=== PATIENT | female | born 2000 | race Caucasian/White ===

== ENCOUNTER 2019-09-21 14:49 | Observation (INO) ==
[2019-09-21 15:30] LABS: Basophils % 0.3 %; Eosinophils # 0.1 K/mcL (0.0-0.6); Eosinophils % 1.1 %; Hematocrit 38.1 % (35.3-44.9); Hemoglobin 13.2 g/dL (11.5-15.4); Immature Granulocytes % 1.1 % (0-4); Lymphocytes # 2.1 K/mcL (0.6-4.6); Lymphocytes % 16.2 %; Mean Corpuscular HGB Conc 34.6 g/dL (31.6-35.5); Mean Corpuscular Hemoglobin 30.7 pg (28.0-33.3); Mean Corpuscular Volume 88.6 fL (83.0-100.0); Mean Platelet Volume 9.9 fL (9.4-12.4); Monocytes # 0.8 K/mcL (0.0-1.3); Monocytes % 6.2 %; Neutrophils # 9.9 K/mcL (1.6-8.9); Platelet Count 381 K/mcL (140-400); Red Cell Distribution Width 13.8 % (11.5-14.5); Segmented Neutrophils % 75.1 %; White Blood Count 13.1 K/mcL (4.3-11.1)
[2019-09-21 15:41] LABS: Alanine Aminotransferase 15 Units/L (7-52); Aspartate Amino Transferase 13 Units/L (13-39); BUN/Creatinine Ratio 18 (6-26); Blood Urea Nitrogen 11 mg/dL (6-20); Lactate Dehydrogenase 207 Units/L (140-271); Uric Acid 4.3 mg/dL (2.3-7.6); eGFR For African Americans > 60 (> 60); eGFR For Non-African Americans > 60 (> 60)
[2019-09-21 15:56] LABS: Protein/Creatinine Ratio,Urine 2.6 mg/mg (0.00-0.20)
== END 2019-09-21 17:30 | disposition home or self-care (01) ==
LOC: 1NENULAB
PROVIDERS: ADMIT Advanced Practice Midwife; ATTEND Advanced Practice Midwife

== ENCOUNTER → 2019-09-22 16:35 | Observation (INO) ==
[~2019-09-22 16:35] MED LIST: Ringers Solution, Lactated 1,000 ML IVC ONE
[2019-09-22 16:45] LABS: Total Volume 24 Hour,Urine 1.9 Liters (0.60-1.60)
[2019-09-22 17:00] LABS: Protein/Creatinine Ratio,Urine 2.35 mg/mg (0.00-0.20)
== END | disposition home or self-care (01) ==
LOC: 1NENULAB
PROVIDERS: ADMIT Advanced Practice Midwife; ATTEND Advanced Practice Midwife

== ENCOUNTER → 2019-09-28 16:00 | Observation (INO) ==
[2019-09-28 12:19] LABS: Basophils % 0.3 %; Eosinophils # 0.1 K/mcL (0.0-0.6); Hematocrit 37.3 % (35.3-44.9); Hemoglobin 12.9 g/dL (11.5-15.4); Lymphocytes # 1.7 K/mcL (0.6-4.6); Mean Corpuscular HGB Conc 34.6 g/dL (31.6-35.5); Mean Corpuscular Hemoglobin 30.8 pg (28.0-33.3); Mean Platelet Volume 9.9 fL (9.4-12.4); Monocytes # 0.6 K/mcL (0.0-1.3); Monocytes % 4.9 %; Neutrophils # 9.3 K/mcL (1.6-8.9); Platelet Count 344 K/mcL (140-400); Red Blood Count 4.19 M/mcL (3.82-4.97); Red Cell Distribution Width 13.7 % (11.5-14.5); Segmented Neutrophils % 78.8 %; White Blood Count 11.8 K/mcL (4.3-11.1)
[2019-09-28 12:29] LABS: Protein/Creatinine Ratio,Urine 2.86 mg/mg (0.00-0.20)
[2019-09-28 12:44] LABS: Alanine Aminotransferase 15 Units/L (7-52); Aspartate Amino Transferase 13 Units/L (13-39); BUN/Creatinine Ratio 18 (6-26); Blood Urea Nitrogen 12 mg/dL (6-20); Lactate Dehydrogenase 212 Units/L (140-271); Uric Acid 4.5 mg/dL (2.3-7.6); eGFR For African Americans > 60 (> 60); eGFR For Non-African Americans > 60 (> 60)
== END | disposition home or self-care (01) ==
LOC: 1NENULAB
PROVIDERS: ADMIT Advanced Practice Midwife; ATTEND Advanced Practice Midwife

== ENCOUNTER 2019-10-17 15:06 | Inpatient (IN) ==
[~2019-10-17 15:06] MED LIST changes: +*HR* FentaNYL (PF) 100 MCG/2 ML VIAL IVP PRN; +Azithromycin 500 MG in 0.9 % Sodium Chloride 250 ML IVPB ONE; +Famotidine 20 MG/2 ML VIAL IVP PRN; +Lidocaine 1% 20 ML MDV INFILT PRN; +Metoclopramide 10 MG/2 ML VIAL IVP PRN; +Naloxone 0.4 MG/ML INJ IVP PRN; +Ondansetron 4 MG/2 ML VIAL IVP PRN; -Ringers Solution, Lactated 1,000 ML IVC ONE
[2019-10-17] MEDS ORDERED: Ringers Solution, Lactated 1,000 ML IVC SCH (15:15)
[2019-10-17 16:28] LABS: Basophils % 0.3 %; Eosinophils # 0.2 K/mcL (0.0-0.6); Eosinophils % 1.4 %; Hemoglobin 14.4 g/dL (11.5-15.4); Immature Granulocytes % 0.6 % (0-4); Lymphocytes # 2.2 K/mcL (0.6-4.6); Lymphocytes % 17.7 %; Mean Corpuscular HGB Conc 34.3 g/dL (31.6-35.5); Mean Corpuscular Hemoglobin 30.6 pg (28.0-33.3); Mean Corpuscular Volume 89.2 fL (83.0-100.0); Mean Platelet Volume 9.8 fL (9.4-12.4); Monocytes # 0.8 K/mcL (0.0-1.3); Monocytes % 6.6 %; Neutrophils # 9.1 K/mcL (1.6-8.9); Platelet Count 358 K/mcL (140-400); Red Blood Count 4.71 M/mcL (3.82-4.97); Red Cell Distribution Width 13.6 % (11.5-14.5); Segmented Neutrophils % 73.4 %; White Blood Count 12.3 K/mcL (4.3-11.1)
[2019-10-17 16:36] LABS: Amphetamine Screen,Urine Negative ng/mL (Cutoff=1000); Barbiturate Screen,Urine Negative ng/mL (Cutoff=200); Benzodiazepines Screen,Urine Negative ng/mL (Cutoff=200); Cannabinoid Screen,Urine Negative ng/mL (Cutoff = 50); Cocaine Screen,Urine Negative ng/mL (Cutoff= 300); Opiate Screen,Urine Negative ng/mL (Cutoff=300); Phencyclidine Screen,Urine Negative ng/mL (Cutoff=25)
[2019-10-17 16:46] LABS: Alanine Aminotransferase 32 Units/L (7-52); Aspartate Amino Transferase 29 Units/L (13-39); BUN/Creatinine Ratio 15 (6-26); Blood Urea Nitrogen 10 mg/dL (6-20); Lactate Dehydrogenase 258 Units/L (140-271); Uric Acid 4.6 mg/dL (2.3-7.6); eGFR For African Americans > 60 (> 60); eGFR For Non-African Americans > 60 (> 60)
[2019-10-17 16:55] LABS: Protein/Creatinine Ratio,Urine 2.9 mg/mg (0.00-0.20)
== END 2019-10-17 18:52 | disposition home or self-care (01) | DRG 831 ==
LOC: 1NENULAB
PROVIDERS: ADMIT Obstetrics & Gynecology; ATTEND Obstetrics & Gynecology

== ENCOUNTER 2019-10-21 06:00 | Inpatient (IN) ==
[2019-10-21] MEDS ORDERED: Famotidine 20 MG/2 ML VIAL IVP PRN (06:10)
[2019-10-21] MEDS ORDERED: Ondansetron 4 MG/2 ML VIAL IVP PRN (06:10)
[2019-10-21] MEDS ORDERED: Lidocaine 1% 20 ML MDV INFILT PRN (06:10)
[2019-10-21] MEDS ORDERED: Naloxone 0.4 MG/ML INJ IVP PRN (06:10)
[2019-10-21] MEDS ORDERED: Metoclopramide 10 MG/2 ML VIAL IVP PRN (06:10)
[2019-10-21] MEDS ORDERED: *HR* FentaNYL (PF) 100 MCG/2 ML VIAL IVP PRN (06:10)
[2019-10-21] MEDS ORDERED: miSOPROStoL 25 MCG TABLET PO PRN (06:14)
[2019-10-21 06:35] LABS: Basophils # 0.1 K/mcL (0.0-0.2); Basophils % 0.4 %; Eosinophils # 0.2 K/mcL (0.0-0.6); Eosinophils % 1.4 %; Hematocrit 39.8 % (35.3-44.9); Hemoglobin 14.6 g/dL (11.5-15.4); Immature Granulocytes % 0.7 % (0-4); Lymphocytes # 2.5 K/mcL (0.6-4.6); Lymphocytes % 18.2 %; Mean Corpuscular HGB Conc 36.7 g/dL (31.6-35.5); Mean Corpuscular Hemoglobin 32.7 pg (28.0-33.3); Mean Platelet Volume 9.9 fL (9.4-12.4); Neutrophils # 9.9 K/mcL (1.6-8.9); Platelet Count 340 K/mcL (140-400); Red Blood Count 4.47 M/mcL (3.82-4.97); Red Cell Distribution Width 13.7 % (11.5-14.5); Segmented Neutrophils % 72.3 %; White Blood Count 13.7 K/mcL (4.3-11.1)
[2019-10-21] MEDS: 0.9 % Sodium Chloride 1,000 ML IVC SCH ×2 (06:37→11:28)
[2019-10-21 06:44] LABS: Creatinine,Urine 76 mg/dL; Protein/Creatinine Ratio,Urine 2.21 mg/mg (0.00-0.20)
[2019-10-21 06:55] LABS: Alanine Aminotransferase 37 Units/L (7-52); Aspartate Amino Transferase 40 Units/L (13-39); BUN/Creatinine Ratio 16 (6-26); Blood Urea Nitrogen 11 mg/dL (6-20); Glucose 111 mg/dL (70-105); Lactate Dehydrogenase 247 Units/L (140-271); Uric Acid 5.1 mg/dL (2.3-7.6); eGFR For African Americans > 60 (> 60); eGFR For Non-African Americans > 60 (> 60)
[2019-10-21] MEDS ORDERED: *HR* Dextrose 50 % in Water (Syg) 50 ML SYRINGE IVP PRN (07:09)
[2019-10-21] MEDS ORDERED: Insulin Human Regular 100 UNIT in 0.9 % Sodium Chloride 100 ML IVC SCH (07:15)
[2019-10-21] MEDS ORDERED: D5% in Water 1,000 ML IVC PRN (07:41)
[2019-10-21] MEDS: Acetaminophen 325 MG TABLET PO PRN ×2 (07:43→19:44)
[2019-10-21 07:46] LABS: Amphetamine Screen,Urine Negative ng/mL (Cutoff=1000); Barbiturate Screen,Urine Negative ng/mL (Cutoff=200)
[2019-10-21 07:47] LABS: Benzodiazepines Screen,Urine Negative ng/mL (Cutoff=300); Cannabinoid Screen,Urine Negative ng/mL (Cutoff = 50); Cocaine Screen,Urine Negative ng/mL (Cutoff= 300); Opiate Screen,Urine Negative ng/mL (Cutoff=300); Phencyclidine Screen,Urine Negative ng/mL (Cutoff=25)
[2019-10-21] MEDS ORDERED: Ropivacaine/PF 0.2% 20 ML VIAL EP ONE (11:03)
[2019-10-21] MEDS ORDERED: EPHEDrine 50 MG/ML VIAL IVP PRN (11:03)
[2019-10-21] MEDS ORDERED: *HR* FentaNYL (PF) 100 MCG/2 ML VIAL EP ONE (11:03)
[2019-10-21] MEDS ORDERED: Epidural Premix (fent/bupiv) 110 ML EP ONE (11:15)
[2019-10-21] MEDS: Epidural Premix (fent/bupiv) 110 ML EP SCH ×2 (11:26→18:30)
[2019-10-21] MEDS ORDERED: Oxytocin 20 units/ LR 1000 mL 20 UNIT/1,000 ML BAG IVC SCH (12:45)
[2019-10-22] MEDS: Epidural Premix (fent/bupiv) 110 ML EP SCH (00:23)
[2019-10-22] MEDS ORDERED: *HR* OxyCODONE/APAP 5/325 TABLET PO ONE (06:55)
[2019-10-22] MEDS ORDERED: Measles/Mumps/Rubella Vacc 0.5 ML VIAL SQ PRN (10:25)
[2019-10-22] MEDS ORDERED: D5% in Water 1,000 ML IVC PRN (10:25)
[2019-10-22] MEDS ORDERED: Benzocaine/Menthol 56 GM AEROSOL SPRAY TP PRN (10:25)
[2019-10-22] MEDS ORDERED: Lanolin 7 G OINT...G. TP PRN (10:25)
[2019-10-22] MEDS ORDERED: Acetaminophen 325 MG TABLET PO PRN (10:25)
[2019-10-22] MEDS ORDERED: Dextrose Gel 15 GM/37.5 ML TUBE PO PRN ×2 (10:25)
[2019-10-22] MEDS ORDERED: Oxytocin 20 units/ LR 1000 mL 20 UNIT/1,000 ML BAG IVC SCH (10:25)
[2019-10-22] MEDS ORDERED: *HR* Dextrose 50 % in Water (Syg) 50 ML SYRINGE IVP PRN (10:25)
[2019-10-22] MEDS: Insulin LISPRO 300 UNITS/3 ML VIAL SQ SCH ×3 (10:43→16:59)
[2019-10-22] MEDS: cephALEXin 500 MG CAPSULE PO SCH ×2 (11:01→20:04)
[2019-10-22] MEDS: Prenatal Vit/FA 1 EACH TABLET PO SCH (11:01)
[2019-10-22] MEDS: Ibuprofen 600 MG TABLET PO PRN ×2 (11:02→18:31)
[2019-10-22] MEDS: *HR* OxyCODONE/APAP 10/325 TABLET PO PRN (13:50)
[2019-10-22] MEDS ORDERED: Insulin LISPRO 300 UNITS/3 ML VIAL SQ STA (16:54)
[2019-10-22] MEDS ORDERED: Insulin DETEMIR 100 UNIT/ML X5UNITS SQ SCH (21:00)
[2019-10-23] MEDS: *HR* OxyCODONE/APAP 10/325 TABLET PO PRN ×3 (04:24→19:52)
[2019-10-23 04:48] LABS: Alanine Aminotransferase 37 Units/L (7-52); Aspartate Amino Transferase 63 Units/L (13-39); BUN/Creatinine Ratio 19 (6-26); Blood Urea Nitrogen 15 mg/dL (6-20); Lactate Dehydrogenase 278 Units/L (140-271); Uric Acid 7.3 mg/dL (2.3-7.6); eGFR For African Americans > 60 (> 60); eGFR For Non-African Americans > 60 (> 60)
[2019-10-23] MEDS: cephALEXin 500 MG CAPSULE PO SCH ×2 (07:53→19:52)
[2019-10-23] MEDS: Prenatal Vit/FA 1 EACH TABLET PO SCH (07:54)
[2019-10-23] MEDS: Ibuprofen 600 MG TABLET PO PRN (07:54)
[2019-10-23] MEDS: Insulin DETEMIR 100 UNIT/ML X5UNITS SQ SCH ×2 (09:01→21:44)
[2019-10-23] MEDS: Insulin LISPRO 300 UNITS/3 ML VIAL SQ SCH (11:54)
[2019-10-24] MEDS: *HR* OxyCODONE/APAP 10/325 TABLET PO PRN (01:54)
[2019-10-24] MEDS: Ibuprofen 600 MG TABLET PO PRN (06:51)
[2019-10-24 08:20] VITALS: BP 139/87
[2019-10-24] MEDS: Prenatal Vit/FA 1 EACH TABLET PO SCH (08:46)
[2019-10-24] MEDS: cephALEXin 500 MG CAPSULE PO SCH (08:46)
[2019-10-24] MEDS: Insulin DETEMIR 100 UNIT/ML X5UNITS SQ SCH (10:15)
[2019-10-24] MEDS ORDERED: Measles/Mumps/Rubella Vacc 0.5 ML VIAL SQ ONE (10:46)
== END 2019-10-24 11:10 | disposition home or self-care (01) ==
LOC: 1NENULAB 06:09 → 1NENUOBS 10-22 09:31
PROVIDERS: ADMIT Obstetrics & Gynecology; ATTEND Obstetrics & Gynecology